=== PATIENT | male | born 1985 | race Hispanic/Latino ===

== ENCOUNTER 2016-10-18 06:17 | Emergency (ER) | payer SELFPAY ==
[2016-10-18] MEDS ORDERED: KEPPRA IV ONE (06:57)
[2016-10-18] MEDS ORDERED: NS IV ONE (06:57)
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
[2016-10-18 07:48] VITALS: BP 120/87
== END 2016-10-18 07:48 | disposition home or self-care (01) ==
LOC: ED 06:17
DX: R56.9 Unspecified convulsions (principal); J45.909 Unspecified asthma, uncomplicated; F17.200 Nicotine dependence, unspecified, uncomplicated
CPT/HCPCS: 96374; 99283; J1953